=== PATIENT | female | born 1955 | race Caucasian/White ===

== ENCOUNTER 2021-06-25 08:39 | Emergency (ER) | payer OTHER ==
[2021-06-25] MEDS ORDERED: Ketorolac 30 MG/ML SDV IM ONE (09:11)
[2021-06-25] MEDS ORDERED: Sodium Chloride 0.9% 10 ML Syringe FLUSH PRN (09:32)
[2021-06-25] MEDS ORDERED: Ketorolac 30 MG/ML SDV IVPUSH ONE (09:40)
[2021-06-25] MEDS ORDERED: Sodium Chloride 0.9% 1,000 ML IV SCH (09:45)
[2021-06-25] MEDS ORDERED: Propofol 200 MG/20 ML SDV ONE ×2 (10:14→10:49)
[2021-06-25] MEDS ORDERED: fentaNYL 100 MCG/2 ML SDV IVPUSH ONE (10:41)
[2021-06-25] MEDS ORDERED: HYDROmorphone 0.5 MG/0.5 ML Syringe IVPUSH ONE (11:25)
== END 2021-06-25 11:36 | disposition home or self-care (01) ==
LOC: JP.ED 08:39
DX: S82.822A Torus fracture of lower end of left fibula, initial encounter for closed fracture (principal); Z91.040 Latex allergy status; Z88.2 Allergy status to sulfonamides; Z91.048 Other nonmedicinal substance allergy status; Z79.899 Other long term (current) drug therapy; Z72.0 Tobacco use; X50.1XXA Overexertion from prolonged static or awkward postures, initial encounter
CPT/HCPCS: 25605; 27788; 73610-26-LT; 73610-LT; 76000; 96374; 96375; 99283; 99283-25; J1885; J2704; J3010; J3490; J7030

== ENCOUNTER 2021-07-03 07:03 | Day surgery (SDC) | payer OTHER ==
[~2021-07-03 07:03] MED LIST: Bupivacaine 0.5% 30 ML SDV ONE
[2021-07-03] MEDS ORDERED: Lactated Ringers 1,000 ML IV SCH (07:30)
[2021-07-03] MEDS ORDERED: Nozin Nasal Sanitizer NASBOTH SCH (07:30)
[2021-07-03] MEDS ORDERED: ceFAZolin 2 GM in Premix Bag 1 BAG IV ONE (07:30)
[2021-07-03 08:10] LABS: CORONAVIRUS COVID-19 NAA NEGATIVE (NEGATIVE)
[2021-07-03] MEDS ORDERED: Succinylcholine 200 MG/10 ML MDV ONE (08:14)
[2021-07-03] MEDS ORDERED: fentaNYL 250 MCG/5 ML SDV ONE ×2 (08:14→08:58)
[2021-07-03] MEDS ORDERED: Rocuronium 50 MG/5 ML Vial ONE (08:14)
[2021-07-03] MEDS ORDERED: Propofol 200 MG/20 ML SDV ONE (08:14)
[2021-07-03] MEDS ORDERED: Ondansetron 4 MG/2 ML SDV ONE (08:14)
[2021-07-03] MEDS ORDERED: Neostigmine Methylsulfate 1 MG/ML 5 ML Syringe ONE (08:14)
[2021-07-03] MEDS ORDERED: Glycopyrrolate 0.2 MG/ML 5 ML MDV ONE (08:14)
[2021-07-03] MEDS ORDERED: Dexamethasone 4 MG/ML SDV ONE (08:14)
[2021-07-03] MEDS ORDERED: Albuterol/Ipratropium 3.0-0.5 MG/3 ML Neb Soln NEB ONE (09:00)
[2021-07-03] MEDS ORDERED: Morphine 2 MG/ML SYRINGE IVPUSH ONE (10:24)
[2021-07-03] MEDS ORDERED: Ketorolac 30 MG/ML SDV ONE (10:33)
[2021-07-03] MEDS ORDERED: Acetaminophen/HYDROcodone 325-5 MG Tab PO PRN (11:22)
== END 2021-07-03 12:30 | disposition home or self-care (01) ==
LOC: JP.SDS 07:03
PROVIDERS: ATTEND Specialist
DX: S82.832A Other fracture of upper and lower end of left fibula, initial encounter for closed fracture (principal); S93.05XA Dislocation of left ankle joint, initial encounter; F17.210 Nicotine dependence, cigarettes, uncomplicated; I10 Essential (primary) hypertension; G47.33 Obstructive sleep apnea (adult) (pediatric); E66.9 Obesity, unspecified; Z88.2 Allergy status to sulfonamides; Z91.040 Latex allergy status; Z91.048 Other nonmedicinal substance allergy status; X58.XXXA Exposure to other specified factors, initial encounter; Z68.34 Body mass index [BMI] 34.0-34.9, adult
CPT/HCPCS: 0241U; 36415; 76000; 76000-26; 80053; 85027; A9270-GY; C1713; C1776; J0330; J0690; J1100; J1885; J2270; J2405; J2704; J2710; J3010; J3490; J7120; J7620

== ENCOUNTER 2022-11-12 09:49 | Emergency (ER) | payer MEDICARE, BC ==
[2022-11-12] MEDS ORDERED: Sodium Chloride 0.9% 10 ML Syringe FLUSH PRN (10:20)
[2022-11-12] MEDS ORDERED: Ondansetron 4 MG/2 ML SDV IVPUSH ONE (10:21)
[2022-11-12] MEDS ORDERED: Ketorolac 30 MG/ML SDV IVPUSH ONE (10:21)
[2022-11-12] MEDS ORDERED: Sodium Chloride 0.9% 1,000 ML IV SCH (10:30)
[2022-11-12 10:32] LABS: BASOPHILS ABSOLUTE AUTO 0.03 K/uL (0.00-0.10); BASOPHILS PERCENT AUTO 0.3 % (0.1-1.3); EOSINOPHILS ABSOLUTE AUTO 0.07 K/uL (0.00-0.40); EOSINOPHILS PERCENT AUTO 0.6 % (0.0-5.4); HEMATOCRIT 40.5 % (34.3-46.0); HEMOGLOBIN 13.8 g/dL (11.2-15.5); IMMATURE GRAN ABSOLUTE AUTO 0.05 K/uL (0.00-0.23); IMMATURE GRAN PERCENT AUTO 0.4 % (0.0-0.7); LYMPHOCYTES ABSOLUTE AUTO 1.18 K/uL (0.8-3.3); LYMPHOCYTES PERCENT AUTO 10.3 % (11.4-47.7); MEAN CORPUSCULAR HEMOGLOBIN 30.6 pg (31.6-35.5); MEAN CORPUSCULAR HGB CONC 34.1 g/dL (31.6-35.5); MEAN CORPUSCULAR VOLUME 89.8 fL (81.4-99.0); MONOCYTES ABSOLUTE AUTO 1.18 K/uL (0.20-0.90); MONOCYTES PERCENT AUTO 10.3 % (3.3-12.6); NEUTROPHILS ABSOLUTE AUTO 8.98 K/uL (1.0-7.6); NEUTROPHILS PERCENT AUTO 78.1 % (40.0-78.1); PLATELET COUNT,PLT 264 K/uL (130-375); RED BLOOD CELL COUNT 4.51 M/uL (3.77-5.24); WHITE BLOOD CELL COUNT,WBC 11.5 K/uL (3.2-11.0)
[2022-11-12 10:55] LABS: A/G RATIO 0.9 (1.2-2.2); ALANINE AMINOTRANSFERASE,ALT 26 U/L (12-78); ALBUMIN 3.7 g/dL (3.4-5.0); ALKALINE PHOSPHATASE 97 U/L (46-116); ASPARTATE AMNIOTRANSFERASE,AST 15 U/L (15-37); BILIRUBIN TOTAL 0.7 mg/dL (0.2-1.0); BLOOD UREA NITROGEN,BUN 15 mg/dL (7-18); CALCIUM 10.3 mg/dL (8.5-10.1); CARBON DIOXIDE,CO2 30 mmol/L (21-32); CHLORIDE,CL 96 mmol/L (100-108); EST CRCL DRUG DOSING (CG) 47.79 mL/min; ESTIMATED GFR 62 mL/min (>60); GLUCOSE RANDOM 129 mg/dL (74-106); PROTEIN TOTAL,TP 7.8 g/dL (6.4-8.2); SODIUM,NA 135 mmol/L (140-148); TROPONIN I HIGH SENSITIVITY 4.1 pg/mL (<=60.3)
[2022-11-12 11:39] LABS: LYME AB IgG Negative (Negative); LYME AB IgM Negative (Negative)
== END 2022-11-12 11:59 | disposition home or self-care (01) ==
LOC: JP.ED 09:49
DX: R07.89 Other chest pain (principal); I10 Essential (primary) hypertension; E66.9 Obesity, unspecified; Z68.35 Body mass index [BMI] 35.0-35.9, adult; Z91.048 Other nonmedicinal substance allergy status; Z91.040 Latex allergy status; Z88.2 Allergy status to sulfonamides; Z79.899 Other long term (current) drug therapy
CPT/HCPCS: 36415; 71045; 74018; 80053; 83605; 84484; 85025; 86618; 96374; 96375; 99285; J1885; J2405; J3490; J7030

== ENCOUNTER → 2023-08-07 | Day surgery (SDC) | payer BC, MEDICARE ==
[~2023-08-07] MED LIST changes: -Bupivacaine 0.5% 30 ML SDV ONE; +Propofol 200 MG/20 ML SDV ONE; +fentaNYL 100 MCG/2 ML SDV ONE
[2023-08-07] MEDS: Sodium Chloride 0.9% 1,000 ML IV SCH (06:55)
== END ==
LOC: JP.SDS 05:54
PROVIDERS: ATTEND Internal Medicine
DX: R10.13 Epigastric pain (principal); R10.12 Left upper quadrant pain; Z88.2 Allergy status to sulfonamides
CPT/HCPCS: 71250; 71250-26; J2704; J3010; J7030